=== PATIENT | female | born 1960 | race Hispanic/Latino ===

== ENCOUNTER 2018-12-03 16:01 | Emergency (ER) | payer SELFPAY ==
--- NOTE | 2018-12-03 16:38 | ULT ---
Venous duplex sonogram left lower extremity HISTORY: Left leg pain and edema. FINDINGS: The left common femoral vein and greater saphenous junction were evaluated along with the f emoral, deep femoral, popliteal, and posterior tibial veins. There is good color and spectral Doppler flow, compression, and augmentation. IMPRESSION: No sonographic evidence of DVT within the left lower extremity.
[2018-12-03 16:40] LABS: #Eosinphils 0.2 thou/uL (0.0-0.7); #Lymphocytes 1.6 thou/uL (1.20-3.40); #Monocytes 0.7 thou/uL (0.11-0.59); #Neutrophils 4.7 thou/uL (1.40-6.50); %Basophils 0.4 % (0.0-1.0); %Eosinophils 3.3 % (0.0-10.0); %Lymphocytes 22.5 % (21.0-51.0); %Neutrophils 63.9 % (42.0-75.0); Hemoglobin 12.6 g/dL (12.0-16.0); Mean Corpuscular HGB CONC 33.8 g/dL (32.0-36.0); Mean Corpuscular Volume 94.6 fL (78.0-98.0); Mean Platelet Volume 8.3 fL (7.4-10.4); Platelet Count 214 thou/uL (130-400); RBC Distribution Width 11.8 % (11.5-14.5); Red Blood Cell (RBC) Count 3.95 mill/uL (4.20-5.40); White Blood Cell (WBC) Count 7.3 thou/uL (4.8-10.8)
[2018-12-03 16:47] LABS: INR-International Normal Ratio 2.5
[2018-12-03 16:48] LABS: PTT 44.4 SEC (22.9-36.1)
[2018-12-03 17:02] LABS: ALT (SGPT) 15 U/L (8-55); AST (SGOT) 17 U/L (5-34); Alkaline Phosphatase 74 U/L (40-150); Anion Gap 11 mmol/L (10-20); BUN (Urea Nitrogen) 12 mg/dL (9.8-20.1); Bilirubin, Total 0.5 mg/dL (0.2-1.2); Calc. Creatinine Clearance 0 mL/min (70-130); Calcium 9.5 mg/dL (7.8-10.44); Carbon Dioxide 23 mmol/L (22-29); Chloride 109 mmol/L (98-107); Estimated GFR-MDRD 89; Glucose 100 mg/dL (70-105); Potassium 3.6 mmol/L (3.5-5.1); Sodium 139 mmol/L (136-145)
[2018-12-03] MEDS ORDERED: HYDROcodone/Acetaminophen 5/325 mg Tablet ONE (19:23)
== END 2018-12-03 19:32 | disposition home or self-care (01) ==
LOC: ERS 16:01
DX: M79.662 Pain in left lower leg (principal); R60.0 Localized edema; E03.9 Hypothyroidism, unspecified; Z86.718 Personal history of other venous thrombosis and embolism; Z79.899 Other long term (current) drug therapy; Z79.01 Long term (current) use of anticoagulants
CPT/HCPCS: 36415; 80053; 85025; 85610; 85730

== ENCOUNTER 2018-12-11 15:28 | Outpatient (CLI) | payer OTHER ==
--- NOTE | 2018-12-11 16:14 | RAD ---
EXAM: XR Knee Lt 2 View PROVIDED CLINICAL HISTORY: Knee pain without injury COMPARISON: None FINDINGS: There is no evidence for fracture or other acute osseous abnormality. Small osteophytes are seen abou t the medial femorotibial joint with minimal medial femorotibial joint space narrowing. Alignment appears anatomic. Joint spaces appear otherwise preserved. Conspicuous knee joint capsular distention likely reflecting large effusion. IMPRESSION: Degenerative changes and large knee joint effusion. If there is concern for internal derangement, con director loss prevention MRI.
== END 2018-12-11 15:29 | disposition home or self-care (01) ==
LOC: BICRAD 15:28
PROVIDERS: ATTEND Family Medicine
DX: M25.562 Pain in left knee (principal); M17.12 Unilateral primary osteoarthritis, left knee; M25.462 Effusion, left knee